=== PATIENT | female | born 1995 | race Caucasian/White ===

== ENCOUNTER → 2018-05-11 | Outpatient (CLI) | payer OTHER ==
--- NOTE | 2018-05-12 07:49 | US ---
EXAMINATION TYPE: Transabdominal DATE OF EXAM: 01/24/18 COMPARISON: NONE CLINICAL HISTORY: Z36 Confirm dates; EXAM PERFORMED: Transabdominal (TA) EXAM MEASUREMENTS: GESTATIONAL AGE / DATING Physician Established: Not yet established Dates by LMP: (8 weeks/1 day) EDC: 12/20/2018 Dates by First Scan: No previous. This is first scan Dates by Current Scan for: ( 8 weeks/1 day) EDC: 12/20/2018 MATERNAL ANATOMY Uterus: 8.8 x 4.5 x 5.1cm Right Ovary: not seen Left Ovary: 2.4 x 3.0 x 1.9cm Post CDS / Adnexa: wnl Presence of free fluid: no Presence of corpus luteal cyst: not seen Presence of subchorionic bleed: anechoic area seen superior subchorionic area = 0.3 x 0.5 x 0.6cm GESTATION / SURVEY CRL: 1.7cm (8 weeks/1 day) Yolk Sac (normal less than 6mm): 3.5mm Heart Rate: 171 bpm Rhythm: Normal IUP: Viable IUP Date of LMP: 03/15/2018 Beta HcG (if available): NA Single, live IUP, 8 weeks/1 day, EDC: 12/20/2018, [id number] Single live intrauterine gestation is confirmed as gestational sac, yolk sac, and pole are iden tified. Tiny 3 x 6 x 5 mm curvilinear fluid collection along superior aspect of the decidual reaction likely reflects tiny subchorionic hemorrhage image 26 towards the end of study. No free fluid is see n in pelvic cul-de-sac. Left ovary is seen. Right ovary is not clearly identified. No suspicious adnexal masses are seen. IMPRESSION: Single live intrauterine gestation is confirmed, mean crown-rump length is 1.7 cm corresponding to 8 week 1 day old fetus.
== END | disposition home or self-care (01) ==
LOC: RADUSWWP 14:12
PROVIDERS: ATTEND Obstetrics & Gynecology
DX: Z36.9 Encounter for antenatal screening, unspecified (principal); Z3A.08 8 weeks gestation of pregnancy
CPT/HCPCS: 76801

== ENCOUNTER 2018-12-22 05:18 | Inpatient (IN) | payer OTHER ==
--- NOTE | 2018-12-21 18:20 | P.HPOB ---
History of Present Illness H&P Date: 12/21/18 Chief Complaint: Induction of labor This is a 23-year-old female 2 para 0 with an estimated date of confinement of 12/20/2018, estimated gestational age of 40-2/7 weeks, who presents to labor and delivery for induction of labor. She admits to good movement. She has been feeling frequent contractions. She also complains of pressure. She was seen by maternal medicine earlier in the and the baby was found to have possible clubfeet. When she went back for follow-up ultrasound, the clubfeet were not seen but not clearly visualized. labs: Hepatitis B surface antigen-negative RPR-nonreactive Rubella-immune Blood type-O+ Antibody screen-negative Hemoglobin-13.3 Toxoplasma screen-negative Random glucose-75 One hour Glucola-99 Group B streptococcus-negative Obstetrical history: . History of 1 miscarriage. Gynecologic history: No history of sexual transmitted diseases. Social history: She is single. 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, history of heart murmur Additional Past Surgical History / Comment(s): Reconstruction of right hand, aspiration of right ganglion cyst Past Psychological History: No Psychological Hx Reported Smoking Status: Never smoker Past Alcohol Use History: None Reported Past Drug Use History: None Reported Medications and Allergies Home Medications Medication Instructions Recorded Confirmed Type Albuterol Inhaler [Ventolin Hfa 1 - 2 puff INHALATION RT-Q6H PRN 12/21/18 History Inhaler] Loratadine [Claritin] 10 mg PO DAILY 12/21/18 12/21/18 History Montelukast Sodium [Singulair] 5 mg PO DAILY 12/21/18 12/21/18 History Pnv,Calcium 72/Iron/Folic Acid 2 each PO 12/21/18 History [ Plus Tablet] Allergies Allergy/AdvReac Type Severity Reaction Status Date / Time Penicillins Allergy Rash/Hives Verified 12/21/18 18:18 Exam Osteopathic Statement: *. No significant issues noted on an osteopathic structural exam other than those noted in the History and Physical/Consult. HEENT: Within normal limits Heart: Regular rate and rhythm Lungs: Clear to auscultation bilaterally Abdomen: Cervix: 1-1/2 cm/80%/+1 station heart tones: Category 1 with moderate variability Contractions: Irregular Extremities: Negative Homans Assessment and Plan (1) 40 weeks gestation of Status: Acute Code(s): Z3A.40 - 40 WEEKS GESTATION OF SNOMED Code( s): 97153405 Plan: Proceed with oxytocin induction of labor. Expectant management. Epidural anesthesia if desired.
[2018-12-22] MEDS ORDERED: METHYLERGONOVINE 0.2 MG/ML 1 ML AMP IM PRN (05:33)
[2018-12-22] MEDS ORDERED: CARBOPROST TROMETHAMINE 250 MCG/ML 1 ML AMP IM PRN (05:33)
[2018-12-22] MEDS ORDERED: OXYTOCIN 10 UNIT/ML 1 ML VIAL IM PRN (05:33)
[2018-12-22] MEDS ORDERED: LIDOCAINE 0.5% (PF) 5 MG/ML (50 ML SDV) SQ PRN (05:33)
[2018-12-22] MEDS ORDERED: TERBUTALINE 1 MG/ML VIAL SQ PRN (05:33)
[2018-12-22] MEDS: LACTATED RINGERS 1,000 ML IV SCH ×2 (05:41→10:07)
[2018-12-22 05:45] VITALS: BMI 25.2
[2018-12-22] MEDS ORDERED: OXYTOCIN 30 UNITS/500 ML NS 30 UNIT in SALINE 1 500ML.BAG IV SCH (05:45)
[2018-12-22 05:57] LABS: Basophils # (A) 0.1 k/uL (0-0.2); Basophils % (A) 1 %; Eosinophils # (A) 0.2 k/uL (0-0.7); Eosinophils % (A) 2 %; HCT 38.2 % (34.0-46.0); HGB 12.4 gm/dL (11.4-16.0); Hypochromasia Slight; Lymphocytes % (A) 21 %; MCH 23.1 pg (25.0-35.0); MCHC 32.4 g/dL (31.0-37.0); MCV 71.2 fL (80.0-100.0); Mean Platelet Volume 6.3; Microcytosis Slight; Monocytes # (A) 0.5 k/uL (0-1.0); Monocytes % (A) 6 %; Neutrophils # (A) 6.5 k/uL (1.3-7.7); Neutrophils % (A) 68 %; Platelet Count 211 k/uL (150-450); RBC 5.37 m/uL (3.80-5.40); RDW 13.6 % (11.5-15.5); WBC 9.6 k/uL (3.8-10.6)
[2018-12-22] MEDS ORDERED: BUTORPHANOL 1 MG/ML 1 ML VIAL IV PRN (06:26)
[2018-12-22] MEDS ORDERED: SODIUM CHLORIDE 0.9% 100 ML BAG ONE (09:15)
[2018-12-22] MEDS ORDERED: ROPIVACAINE 5MG/ML 20ML VIAL ONE (09:15)
[2018-12-22] MEDS ORDERED: fentaNYL (PF) 50 MCG/ML 5 ML AMP ONE (09:15)
[2018-12-22] MEDS ORDERED: ACETAMINOPHEN TAB 325 MG TAB PO PRN (14:53)
[2018-12-22] MEDS ORDERED: ZOLPIDEM 5 MG TAB PO PRN (14:53)
[2018-12-22] MEDS ORDERED: WITCH HAZEL 1 EACH MED..PAD TOPICAL PRN (14:53)
[2018-12-22] MEDS ORDERED: ALBUTEROL NEBULIZED 2.5 MG/3 ML INHALATION PRN (14:53)
[2018-12-22] MEDS ORDERED: diphenhydrAMINE 50 MG/ML 1 ML VIAL IVP PRN ×2 (14:53)
[2018-12-22] MEDS ORDERED: LANOLIN CREAM 5 GM TUBE TOPICAL PRN (14:53)
[2018-12-22] MEDS ORDERED: OXYTOCIN 20 UNITS/1000 ML NS 1,000 ML IV SCH (14:53)
[2018-12-22] MEDS ORDERED: BENZOCAINE/MENTHOL SPRAY 1 GM/SPRAY AEROSOL TOPICAL PRN (14:53)
[2018-12-22] MEDS ORDERED: HYDROCORTISONE 2.5% RECTAL CREAM 30 GM TUBE RECTAL PRN (14:53)
[2018-12-22] MEDS ORDERED: diphenhydrAMINE 50 MG CAP PO PRN (14:53)
[2018-12-22] MEDS ORDERED: diphenhydrAMINE 25 MG CAP PO PRN (14:53)
[2018-12-22] MEDS ORDERED: SIMETHICONE 80 MG CHEWABLE PO PRN (14:53)
[2018-12-22] MEDS: IBUPROFEN 600 MG TAB PO PRN ×2 (15:51→23:09)
--- NOTE | 2018-12-22 16:43 | P.PROBDLV ---
Vaginal Delivery Note - . Vaginal Delivery Note: The patient progressed to complete dilation after oxytocin induction of labor and artificial rupture of membranes with clear fluid noted. She did receive 1 dose of Stadol and did receive epidural anesthesia. Once reaching complete dilation, she began pushing. 's head came to a crown. With one further push, the infant's head delivered across the perineum and a left occiput anterior lie. At this point she decided to stop pushing. I encouraged her to continue pushing until the anterior shoulder delivered. Once the anterior shoulder delivered, nose and mouth were bulb suctioned at the perineum. With one remaining push, the entire delivered and was placed on mother's abdomen. Cord was clamped and cut and was taken to warmer for evaluation. A viable male infant was noted with scores of 9 at 1 minute and 9 at 5 minutes and infant weight of 6 lbs. 1 oz. Placenta delivered shortly thereafter, intact, with a three-vessel cord. Uterus contracted well after oxytocin was given and uterine massage was carried out. Inspection of the perineum revealed a left periurethral laceration. This area was anesthetized with 1% lidocaine and then sutured with 3-0 Vicryl suture in a running locked fashion. Estimated blood loss is approximately 200 mL's. Both mother and are in stable condition.
[2018-12-22] MEDS: SENNOSIDES-DOCUSATE SODIUM 1 EACH TAB PO SCH (20:14)
[2018-12-22] MEDS: LORATADINE 10 MG TAB PO SCH (20:14)
[2018-12-22] MEDS: MONTELUKAST 5 MG CHEWABLE PO SCH (20:14)
[2018-12-23 06:51] LABS: Basophils % (A) 0 %; Eosinophils # (A) 0.1 k/uL (0-0.7); Eosinophils % (A) 0 %; HCT 32.2 % (34.0-46.0); HGB 10.5 gm/dL (11.4-16.0); Hypochromasia Slight; Lymphocytes # (A) 2.2 k/uL (1.0-4.8); Lymphocytes % (A) 19 %; MCH 23.3 pg (25.0-35.0); MCHC 32.5 g/dL (31.0-37.0); MCV 71.7 fL (80.0-100.0); Mean Platelet Volume 6.9; Microcytosis Slight; Monocytes # (A) 0.6 k/uL (0-1.0); Monocytes % (A) 5 %; Neutrophils # (A) 8.7 k/uL (1.3-7.7); Neutrophils % (A) 74 %; Platelet Count 161 k/uL (150-450); RBC 4.49 m/uL (3.80-5.40); RDW 13.7 % (11.5-15.5); WBC 11.8 k/uL (3.8-10.6)
[2018-12-23] MEDS: SENNOSIDES-DOCUSATE SODIUM 1 EACH TAB PO SCH ×2 (08:06→20:25)
[2018-12-23] MEDS: IBUPROFEN 600 MG TAB PO PRN ×2 (09:16→15:59)
--- NOTE | 2018-12-23 10:47 | P.DS ---
Providers Date of admission: 12/22/18 05:18 Expected date of discharge: 12/23/18 Attending physician: Isabella Hernadez Primary care physician: Stated None - Discharge Diagnosis(es) (1) 40 weeks gestation of Current Visit: No Status: Acute Hospital Course: This is a 23-year-old female 2 para 0 at 40-2/7 weeks who presented for induction of labor. She underwent oxytocin induction of labor and delivered vaginally a viable male on 12/22/2018 with scores of 9 at 1 minute and 9 at 5 minutes and infant weight of 6 lbs. 1 oz. Her course has been uncomplicated. She is bottle feeding. Lochia is decreasing. Pain is fairly well controlled with ibuprofen. Vital signs are stable. Abdomen is soft with fundus firm and nontender. Extremities show negative Homans. Impression is status post vaginal delivery day #1. Plan is to discharge home today. Routine instructions are given. She is advised to follow up in the office in 6 weeks for a check. She is advised to call the office if she has any further questions or concerns prior to her appointment time. She will be given a prescription for ibuprofen. Procedures: Oxytocin induction of labor Spontaneous vaginal delivery of a viable male on 12/22/2018 Patient Condition at Discharge: Stable Plan - Discharge Summary New Discharge Prescriptions: New Ibuprofen [Motrin] 600 mg PO Q6HR PRN #60 tab PRN Reason: Mild Pain Or Fever >= 100.5 Continue Albuterol Inhaler [Ventolin Hfa Inhaler] 1 - 2 puff INHALATION RT-Q6H PRN PRN Reason: Wheezing Montelukast Sodium [Singulair] 5 mg PO DAILY Loratadine [Claritin] 10 mg PO DAILY Pnv,Calcium 72/Iron/Folic Acid [ Plus Tablet] 1 each PO ONCE Discharge Medication List Albuterol Inhaler [Ventolin Hfa Inhaler] 1 - 2 puff INHALATION RT-Q6H PRN [History] Loratadine [Claritin] 10 mg PO DAILY 12/21/18 [History] Montelukast Sodium [Singulair] 5 mg PO DAILY 12/21/18 [History] Pnv,Calcium 72/Iron/Folic Acid [ Plus Tablet] 1 each PO ONCE 12/21/18 [ History] Ibuprofen [Motrin] 600 mg PO Q6HR PRN #60 tab 12/23/18 [Rx] Follow up Appointment(s)/Referral(s): Isabella Hernadez DO [Doctor of Osteopathic Medicine] - 6 Weeks Discharge Disposition: HOME SELF-CARE
[2018-12-23] MEDS: MONTELUKAST 5 MG CHEWABLE PO SCH (19:36)
[2018-12-23] MEDS: LORATADINE 10 MG TAB PO SCH (19:36)
[2018-12-24] MEDS: IBUPROFEN 600 MG TAB PO PRN ×2 (03:05→10:22)
[2018-12-24] MEDS: SENNOSIDES-DOCUSATE SODIUM 1 EACH TAB PO SCH (10:22)
[2018-12-24 10:32] VITALS: BP 107/65; PULSE 69; RESP 18; TEMP 98.2
== END 2018-12-24 14:17 | disposition home or self-care (01) | DRG 807 ==
LOC: 4FBP 05:18
PROVIDERS: ADMIT Obstetrics & Gynecology; ATTEND Obstetrics & Gynecology
PROC: 10907ZC Drainage of Amniotic Fluid, Therapeutic from Products of Conception, Via Natural or Artificial Opening (ICD-10-PCS; principal; 2018-12-22)
PROC: 3E033VJ Introduction of Other Hormone into Peripheral Vein, Percutaneous Approach (ICD-10-PCS; principal; 2018-12-22)
PROC: 00HU33Z Insertion of Infusion Device into Spinal Canal, Percutaneous Approach (ICD-10-PCS; principal; 2018-12-22)
PROC: 0UQMXZZ Repair Vulva, External Approach (ICD-10-PCS; principal; 2018-12-22)
PROC: 10E0XZZ Delivery of Products of Conception, External Approach (ICD-10-PCS; principal; 2018-12-22)
PROC: 3E0R3NZ Introduction of Analgesics, Hypnotics, Sedatives into Spinal Canal, Percutaneous Approach (ICD-10-PCS; principal; 2018-12-22)
DX: O48.0 Post-term pregnancy (principal); Z37.0 Single live birth; Z3A.40 40 weeks gestation of pregnancy; J45.909 Unspecified asthma, uncomplicated; O99.52 Diseases of the respiratory system complicating childbirth; Z79.51 Long term (current) use of inhaled steroids; Z79.899 Other long term (current) drug therapy; O71.82 Other specified trauma to perineum and vulva
CPT/HCPCS: 85025; 86850; 86900; 86901; 88307

== ENCOUNTER → 2019-09-07 | Outpatient (CLI) | payer OTHER ==
--- NOTE | 2019-09-07 11:10 | US ---
EXAMINATION TYPE: Transabdominal DATE OF EXAM: 09/07/2019 10:40 AM COMPARISON: NONE CLINICAL HISTORY: Z36 confirm dates. EXAM PERFORMED: Transabdominal EXAM MEASUREMENTS: GESTATIONAL AGE / DATING Physician Established: Not yet established Dates by LMP: (9 weeks/3 days) EDC: 04/08/20 Dates by First Scan: No previous this is first scan Dates by Current Scan for: (9 weeks/4 days) EDC: 04/07/20 MATERNAL ANATOMY Uterus: 13.6 x 4.9 x 8.6cm Right Ovary: 2.6 x 1.8 x 2.1cm Left Ovary: 2.5 x 1.5 x 1.5cm, not well visualized due to overlying bowel gas and increased uterine s ize Post CDS / Adnexa: wnl Presence of free fluid: wnl GESTATION / SURVEY CRL: 2.8cm (9 weeks/4 days) Yolk Sac (normal less than 6mm): 3mm Heart Rate: 166 bpm Rhythm: Normal IUP: Viable IUP Date of LMP: 07/03/20 Beta HcG (if available): Not available at this time IMPRESSION: Single live intrauterine with a sonographic age of 9 weeks and 4 days and estimated date of delivery of 04/07/2020, concordant with menstrual age.
== END ==
LOC: RADUSWWP 10:13
PROVIDERS: ATTEND Obstetrics & Gynecology
DX: Z36.89 Encounter for other specified antenatal screening (principal); Z3A.09 9 weeks gestation of pregnancy
CPT/HCPCS: 76801

== ENCOUNTER → 2019-09-25 | Outpatient (CLI) | payer OTHER ==
--- NOTE | 2019-09-25 15:00 | US ---
EXAMINATION TYPE: Transabdominal DATE OF EXAM: 09/25/2019 2:36 PM COMPARISON: Prior ultrasound September 07, 2019 CLINICAL HISTORY: O76 absent heart tones. Abnormal exam in OB office. EXAM PERFORMED: Transabdominal (TA) EXAM MEASUREMENTS: GESTATIONAL AGE / DATING Physician Established: (12 weeks/0 days) EDC: 04/08/2020 Dates by LMP: (12 weeks/0 days) EDC: 04/08/2020 Dates by First Scan: (9 weeks/4 days) EDC: 04/08/2020 Dates by Current Scan for: (12 weeks/2 days) EDC: 04/06/2020 MATERNAL ANATOMY Uterus: 14.6 x 7.3 x 9.8 cm Right Ovary: Obscured by bowel gas Left Ovary: Obscured by bowel gas Post CDS / Adnexa: wnl Presence of free fluid: no Presence of corpus luteal cyst: no Presence of subchorionic bleed: no GESTATION / SURVEY CRL: 5.8cm (12 weeks/2 days) Heart Rate: 151 bpm Rhythm: Normal IUP: Viable IUP Single live intrauterine gestation is redemonstrated our images which is gestational sac and po le seen. No cul-de-sac is not clearly identified. No free fluid in pelvic cul-de-sac. Neither ovary seen but no suspicious adnexal mass noted. IMPRESSION: Single live intrauterine gestation redemonstrated with satisfactory interval progression, mean crown-rump length is 5.8 cm corresponding to 12 week 2 day old fetus.
== END | disposition home or self-care (01) ==
LOC: RADUSWWP 14:01
PROVIDERS: ATTEND Obstetrics & Gynecology
DX: O76 Abnormality in fetal heart rate and rhythm complicating labor and delivery (principal); Z3A.12 12 weeks gestation of pregnancy
CPT/HCPCS: 76801

== ENCOUNTER 2020-04-07 20:16 | Inpatient (IN) | payer OTHER ==
[~2020-04-07 20:16] MED LIST: ROPIVACAINE 5MG/ML 20ML VIAL ONE; SODIUM CHLORIDE 0.9% 100 ML BAG ONE; fentaNYL (PF) 50 MCG/ML 5 ML AMP ONE
[2020-04-07] MEDS ORDERED: LIDOCAINE 0.5% (PF) 5 MG/ML (50 ML SDV) SQ PRN (22:00)
[2020-04-07] MEDS ORDERED: OXYTOCIN 10 UNIT/ML 1 ML VIAL IM PRN (22:00)
[2020-04-07] MEDS ORDERED: TERBUTALINE 1 MG/ML VIAL SQ PRN (22:00)
[2020-04-07] MEDS ORDERED: METHYLERGONOVINE 0.2 MG/ML 1 ML AMP IM PRN (22:00)
[2020-04-07] MEDS ORDERED: CARBOPROST TROMETHAMINE 250 MCG/ML 1 ML AMP IM PRN (22:00)
[2020-04-07 22:54] LABS: Basophils % (A) 1 %; Eosinophils # (A) 0.1 k/uL (0-0.7); Eosinophils % (A) 1 %; HCT 40.6 % (34.0-46.0); HGB 12.7 gm/dL (11.4-16.0); Lymphocytes # (A) 2.5 k/uL (1.0-4.8); Lymphocytes % (A) 28 %; MCHC 31.3 g/dL (31.0-37.0); MCV 70.4 fL (80.0-100.0); Mean Platelet Volume 7.2; Microcytosis Moderate; Monocytes # (A) 0.4 k/uL (0-1.0); Monocytes % (A) 4 %; Neutrophils # (A) 5.8 k/uL (1.3-7.7); Neutrophils % (A) 64 %; Platelet Count 195 k/uL (150-450); RBC 5.77 m/uL (3.80-5.40); RDW 13.8 % (11.5-15.5)
[2020-04-08] MEDS: LACTATED RINGERS 1,000 ML IV SCH
--- NOTE | 2020-04-08 01:01 | P.HPOB ---
History of Present Illness H&P Date: 04/08/20 Chief Complaint: Intrauterine at term: Active labor Patient is a 24-year-old at 39 weeks 6 days gestation arrives in active labor chanel every 5-7 minutes making cervical change. Her course has been unremarkable other than having some labor-like symptoms and contractions at 27-28 weeks however she is done very well otherwise. Her pe rtinent labs did include O+ blood type, Rh antibody was negative, rubella is immune, hepatitis B surface antigen/RPR/HIV and GBS were all negative. She relates contractions began earlier this evening and got much stronger and by 6:00 she was sent in to labor and delivery by myself after phone conversation with her. Currently she is dilated to 8 cm 90% effaced -1 station a category 1 tracing is noted and she is chanel approximately every 7 minutes. Artificial rupture membranes was performed and clear fluid is noted. 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, history of heart murmur History of Any Multi-Drug Resistant Organisms: None Reported Additional Past Surgical History / Comment(s): Reconstruction of right hand, aspiration of right ganglion cyst Past Anesthesia/Blood Transfusion Reactions: No Reported Reaction Past Psychological History: No Psychological Hx Reported Smoking Status: Never smoker Past Alcohol Use History: None Reported Past Drug Use History: None Reported - Past Family History Mother Family Medical History: No Reported History Medications and Allergies Home Medications Medication Instructions Recorded Confirmed Type Pnv,Calcium 72/Iron/Folic Acid 1 each PO ONCE 12/21/18 04/07/20 History [ Plus Tablet] Allergies Allergy/AdvReac Type Severity Reaction Status Date / Time latex Allergy Rash/Hives Verified 12/22/18 05:31 Penicillins Allergy Rash/Hives Verified 12/22/18 05:31 Exam Osteopathic Statement: *. No significant issues noted on an osteopathic structural exam other than those noted in the History and Physical/Consult. Vital Signs Temp Pulse Resp BP 04/07/20 20:44 97.0 F L 86 16 134/83 Intake and Output 04/07/20 04/07/20 04/08/20 14:59 22:59 06:59 Other: Weight 58.967 kg - OBG Physical Exam Breast: both: normal (no masses) Abdomen: bowel sounds normal, no diffuse tenderness, no bruit present, no guarding noted, no hepatomegaly, no splenomegaly, no mass Vulva: both: normal Vagina: normal moisture, no discharge Cervix: no lesion, no discharge Uterus: normal size, normal contour Adnexa: both: normal Anus/Rectum: normal perianal skin, no rectal mass, no hemorrhoids, heme negative Results Result Diagrams: 04/07/20 22:45 Abnormal Lab Results - Last 24 Hours (Table) 04/07/20 Range/Units 22:45 RBC 5.77 H (3.80-5.40) m/uL MCV 70.4 L (80.0-100.0) fL MCH 22.0 L (25.0-35.0) pg
[2020-04-08] MEDS: OXYTOCIN 30 UNITS/500 ML NS 30 UNIT in SALINE 1 500ML.BAG IV SCH (02:12)
[2020-04-08] MEDS ORDERED: WITCH HAZEL 1 EACH MED..PAD TOPICAL PRN (03:00)
[2020-04-08] MEDS ORDERED: ZOLPIDEM 5 MG TAB PO PRN (03:00)
[2020-04-08] MEDS ORDERED: diphenhydrAMINE 50 MG/ML 1 ML VIAL IVP PRN ×2 (03:00)
[2020-04-08] MEDS ORDERED: diphenhydrAMINE 50 MG CAP PO PRN (03:00)
[2020-04-08] MEDS ORDERED: LANOLIN CREAM 5 GM TUBE TOPICAL PRN (03:00)
[2020-04-08] MEDS ORDERED: OXYTOCIN 20 UNITS/1000 ML NS 1,000 ML IV SCH (03:00)
[2020-04-08] MEDS ORDERED: ACETAMINOPHEN TAB 325 MG TAB PO PRN (03:00)
[2020-04-08] MEDS ORDERED: BENZOCAINE/MENTHOL SPRAY 1 GM/SPRAY AEROSOL TOPICAL PRN (03:00)
[2020-04-08] MEDS ORDERED: diphenhydrAMINE 25 MG CAP PO PRN (03:00)
[2020-04-08] MEDS ORDERED: HYDROCORTISONE 2.5% RECTAL CREAM 30 GM TUBE RECTAL PRN (03:00)
[2020-04-08] MEDS ORDERED: SIMETHICONE 80 MG CHEWABLE PO PRN (03:00)
--- NOTE | 2020-04-08 03:03 | P.PROBDLV ---
Vaginal Delivery Note - . Vaginal Delivery Note: Patient progressed complete and pushed with spontaneous vaginal delivery of a viable male over an intact perineum. Falling deliver the head anterior posterior shoulders were easily delivered with gentle downward upper traction followed by the remainder the baby. Mouth nares were then bulb suctioned and nursery personnel was present to assume care. Baby was placed on mother's abdomen where the umbilical cord was allowed to pulsate for 45 seconds prior to clamping and cutting. Placenta was then delivered intact Pitocin was added to the IV. scores were 9 and 9 at one and 5 minutes respectfully and the weight is pending. Both mother and baby however appear stable following delivery.
[2020-04-08] MEDS: IBUPROFEN 600 MG TAB PO PRN ×2 (11:17→19:17)
[2020-04-08] MEDS: SENNOSIDES-DOCUSATE SODIUM 1 EACH TAB PO SCH ×2 (11:59→20:28)
[2020-04-09] MEDS: IBUPROFEN 600 MG TAB PO PRN ×2 (03:31→20:08)
[2020-04-09] MEDS: SENNOSIDES-DOCUSATE SODIUM 1 EACH TAB PO SCH ×2 (08:00→20:14)
--- NOTE | 2020-04-09 12:21 | P.PNOBGVD ---
Subjective - Subjective Principal diagnosis: Status post vaginal delivery day #1 Interval history: Patient is doing okay. She is breast-feeding. Lochia is decreasing. Her pain is well-controlled. Baby is on a bili blanket currently. Patient reports: Reports appetite normal, Reports voiding normally, Reports pain well controlled, Reports ambulating normally : doing well, nursing well Objective - Latest Vital Signs Latest vital signs: Vital Signs Temp Pulse Resp BP Pulse Ox 04/09/20 08:00 97.9 F 72 18 110/65 98 04/09/20 00:00 97.7 F 81 14 108/70 98 04/08/20 16:00 98.5 F 88 18 101/64 97 Intake and Output 04/08/20 04/09/20 04/09/20 22:59 06:59 14:59 Other: # Voids 1 2 1 # Bowel Movements 0 0 - Exam Extremities: Present: normal. Absent: tenderness Abdomen: Present: normal appearance, soft. Absent: distention, tenderness Uterus: Present: normal, firm. Absent: tenderness Assessment and Plan Assessment: Status post vaginal delivery day #1 Plan: Continue with care. Anticipate discharge home tomorrow.
[2020-04-09] MEDS: LACTATED RINGERS 1,000 ML IV SCH ×2 (20:12→20:15)
[2020-04-09] MEDS: OXYTOCIN 30 UNITS/500 ML NS 30 UNIT in SALINE 1 500ML.BAG IV SCH (20:14)
[2020-04-10] MEDS: IBUPROFEN 600 MG TAB PO PRN (05:57)
[2020-04-10] MEDS: SENNOSIDES-DOCUSATE SODIUM 1 EACH TAB PO SCH (07:44)
--- NOTE | 2020-04-10 08:51 | P.DS ---
Providers Date of admission: 04/07/20 22:02 Expected date of discharge: 04/10/20 Attending physician: Isabella Hernadez Primary care physician: Stated None Hospital Course: This is a 24-year-old female 3 para 1 at 39-6/7 weeks who presented for active labor. She delivered vaginally a viable male infant on 04/08/2020 with scores of 9 at 1 minute and 9 at 5 minutes and weight of 6 lbs. 10 oz. Her course has been uncomplicated. The baby has had some issues with bilirubin and has been on a bili light. Pain is well-controlled. Lochia is decreasing. She is breast-feeding. Vital signs are stable. Abdomen is soft with fundus firm and nontender. Extremities show negative Homans. Impression is status post vaginal delivery day #2. Plan is to discharge home today. Routine instructions are given. She is advised follow-up in the office in 6 weeks for check. She will be given a prescription for ibuprofen. She is advised to call the office if she has any further que stions or concerns prior to her appointment time. Procedures: Spontaneous vaginal delivery of a viable male infant on 04/08/2020 Patient Condition at Discharge: Stable Plan - Discharge Summary New Discharge Prescriptions: No Action Pnv,Calcium 72/Iron/Folic Acid [ Plus Tablet] 1 each PO ONCE Discharge Medication List Pnv,Calcium 72/Iron/Folic Acid [ Plus Tablet] 1 each PO ONCE 12/21/18 [History] Follow up Appointment(s)/Referral(s): Isabella Hernadez DO [Doctor of Osteopathic Medicine] - 6 Weeks Activity/Diet/Wound Care/Special Instructions: Instructions 1. Do not begin any exercise program for 3 weeks. 2. Do not resume sexual relations for 3 weeks or longer if uncomfortable. 3. You may take tub baths or showers at any time. 4. You may use tampons if desired after 3 weeks. 5. Keep the area of episiotomy (stitches) clean and dry. 6. If you are not nursing, wear a good fitting, supportive bra during the day and limit fluid intake for at least 1 week to prevent breast engorgement. 7. Call the office, [phone], within the next week to make appointment for your 6 week checkup if it has not already been made. 8. Report any of the following occurrences to the doctor promptly: a. Heavy, excessive bleeding b. Chills, fever c. Burning or frequency of urination d. Pain or redness and breasts if nursing e. Increasing pain or swelling in episiotomy (stitches). In addition to the above instructions, the following additional should be followed: 1. No heavy lifting or straining (exercising) until after 6 week checkup. 2. Keep abdominal incision clean and dry: You may wear a dressing if more comfortable. 3. Make office appointment for 10 days after going home or as instructed by her doctor. Discharge Disposition: HOME SELF-CARE
[2020-04-10 16:06] VITALS: BP 112/74; PULSE 61; RESP 18; TEMP 98.4
== END 2020-04-10 16:50 | disposition home or self-care (01) | DRG 807 ==
LOC: FBPOP 20:16 → 4FBP 22:02
PROVIDERS: ADMIT Obstetrics & Gynecology; ATTEND Obstetrics & Gynecology
PROC: 00HU33Z Insertion of Infusion Device into Spinal Canal, Percutaneous Approach (ICD-10-PCS; principal; 2020-04-08)
PROC: 3E0R3BZ Introduction of Anesthetic Agent into Spinal Canal, Percutaneous Approach (ICD-10-PCS; principal; 2020-04-08)
PROC: 10E0XZZ Delivery of Products of Conception, External Approach (ICD-10-PCS; principal; 2020-04-08)
DX: O80 Encounter for full-term uncomplicated delivery (principal); Z37.0 Single live birth; Z3A.39 39 weeks gestation of pregnancy; Z88.0 Allergy status to penicillin; Z87.09 Personal history of other diseases of the respiratory system; Z91.040 Latex allergy status
CPT/HCPCS: 59025; 85025; 86850; 86900; 86901; 99213

== ENCOUNTER 2022-04-13 06:00 | Inpatient (IN) | payer OTHER ==
--- NOTE | 2022-04-12 20:16 | P.HPOB ---
History of Present Illness H&P Date: 04/12/22 Chief Complaint: Induction of labor This is a 26 y.o. female, 4, para 2, with an estimated date of confinement of 04/17/2022, estimated gestational age of 39-3/7 weeks, who presents for oxytocin induction of labor. She admits to irregular contractions and pressure. It is difficult for her to walk and she has requested induction of labor. labs: GC/Chlamydia/Trich-neg Hepatitis B surface antigen-neg RPR-NR Rubella-immune Blood type-O+ Antibody screen-neg HIV-NR Hemoglobin-11.4 Random glucose-108 1 hr. GTT-105 GBS-neg OB Hx: . History of 2 vaginal deliveries and 1 miscarriage. Tmr Teacher Hx: No history of STDs. Social Hx: Single. Unemployed. 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, history of heart murmur History of Any Multi-Drug Resistant Organisms: None Reported Additional Past Surgical History / Comment(s): Reconstruction of right hand, aspiration of right ganglion cyst, tooth extraction x 2 Past Anesthesia/Blood Transfusion Reactions: No Reported Reaction Past Psychological History: No Psychological Hx Reported Smoking Status: Former smoker, Vaper Past Alcohol Use History: None Reported Past Drug Use History: None Reported - Past Family History Mother Family Medical History: No Reported History Medications and Allergies Home Medications Medication Instructions Recorded Confirmed Type Vit No.180/Iron/Folic 1 each PO ONCE 12/21/18 04/07/20 History [ Plus Vitamin-Mineral] Allergies Allergy/AdvReac Type Severity Reaction Status Date / Time latex Allergy Rash/Hives Verified 12/22/18 05:31 Penicillins Allergy Rash/Hives Verified 12/22/18 05:31 Exam Osteopathic Statement: *. No significant issues noted on an osteopathic structural exam other than those noted in the History and Physical/Consult. HEENT: within normal limits Heart: regular rate and rhythm Lungs: clear to auscultation Abdomen: , non-tender Cervix: 2 cm/60%/-2 heart tones: 140's by doppler Extremities: neg. Yamilka's Assessment and Plan (1) 39 weeks gestation of Status: Acute Code(s): Z3A.39 - 39 WEEKS GESTATION OF SNOMED Code(s): 88154835 Plan: Proceed with oxytocin induction of labor. Expectant management. Epidural anesthesia if desired.
[2022-04-13] MEDS ORDERED: OXYTOCIN 30 UNITS/500 ML NS 30 UNIT in SALINE 1 500ML.BAG IV SCH (06:35)
[2022-04-13] MEDS ORDERED: CARBOPROST TROMETHAMINE 250 MCG/ML 1 ML AMP IM PRN (06:35)
[2022-04-13] MEDS ORDERED: OXYTOCIN 10 UNIT/ML 1 ML VIAL IM PRN (06:35)
[2022-04-13] MEDS ORDERED: LIDOCAINE 0.5% (PF) 5 MG/ML (50 ML SDV) SQ PRN (06:35)
[2022-04-13] MEDS ORDERED: LIDOCAINE 1% (10MG/ML) FOR IV START INTRADERMA PRN (06:35)
[2022-04-13] MEDS ORDERED: METHYLERGONOVINE 0.2 MG/ML 1 ML AMP IM PRN (06:35)
[2022-04-13] MEDS ORDERED: LACTATED RINGERS 1,000 ML IV SCH (06:35)
[2022-04-13] MEDS ORDERED: TERBUTALINE 1 MG/ML VIAL SQ PRN (06:35)
[2022-04-13 07:10] LABS: Basophils # (A) 0.1 k/uL (0-0.2); Basophils % (A) 1 %; Eosinophils # (A) 0.2 k/uL (0-0.7); Eosinophils % (A) 4 %; HCT 36.3 % (34.0-46.0); HGB 11.4 gm/dL (11.4-16.0); Hypochromasia Slight; Lymphocytes # (A) 2.2 k/uL (1.0-4.8); Lymphocytes % (A) 40 %; MCH 22.9 pg (25.0-35.0); MCHC 31.4 g/dL (31.0-37.0); MCV 73.1 fL (80.0-100.0); Mean Platelet Volume 8.1; Microcytosis Slight; Monocytes # (A) 0.3 k/uL (0-1.0); Monocytes % (A) 6 %; Neutrophils # (A) 2.5 k/uL (1.3-7.7); Neutrophils % (A) 45 %; Platelet Count 144 k/uL (150-450); RBC 4.97 m/uL (3.80-5.40); RDW 14.1 % (11.5-15.5); WBC 5.5 k/uL (3.8-10.6)
[2022-04-13] MEDS ORDERED: BUTORPHANOL 1 MG/ML 1 ML VIAL IV PRN (11:24)
[2022-04-13 11:27] VITALS: RESP 16
--- NOTE | 2022-04-13 17:58 | P.PROBDLV ---
Vaginal Delivery Note - . Vaginal Delivery Note: The patient progressed to complete dilation after oxytocin induction of labor and artificial rupture membranes with clear fluid noted. Once reaching complete, she began pushing. Infant's head came to a crown. With one further push, the infant's head delivered across the perineum followed by the enter shoulder. With one remaining push, the remainder the easily delivered and was placed on mother's abdomen. Cord was clamped and cut and was taken to warmer for evaluation. A viable female infant is noted with scores of 9 at 1 minute and 9 at 5 minutes and infant weight is 5 lbs. 15 oz. Placenta delivered shortly thereafter intact with a three-vessel cord. Uterus contracted fairly well after oxytocin was given and uterine massage was carried out. Inspection of the perineum revealed no perineal lacerations. Estimated blood loss is approximately 150 mL's. Both mother and infant are in stable condition.
[2022-04-13] MEDS ORDERED: diphenhydrAMINE 25 MG CAP PO PRN (20:32)
[2022-04-13] MEDS ORDERED: LANOLIN CREAM 5 GM TUBE TOPICAL PRN (20:32)
[2022-04-13] MEDS ORDERED: SIMETHICONE 80 MG CHEWABLE PO PRN (20:32)
[2022-04-13] MEDS ORDERED: HYDROCORTISONE 2.5% RECTAL CREAM 30 GM TUBE RECTAL PRN (20:32)
[2022-04-13] MEDS ORDERED: diphenhydrAMINE 50 MG/ML 1 ML VIAL IVP PRN ×2 (20:32)
[2022-04-13] MEDS ORDERED: ZOLPIDEM 5 MG TAB PO PRN (20:32)
[2022-04-13] MEDS ORDERED: diphenhydrAMINE 50 MG CAP PO PRN (20:32)
[2022-04-13] MEDS ORDERED: BENZOCAINE/MENTHOL SPRAY 1 GM/SPRAY AEROSOL TOPICAL PRN (20:32)
[2022-04-13] MEDS ORDERED: ACETAMINOPHEN TAB 325 MG TAB PO PRN (20:32)
[2022-04-13] MEDS ORDERED: PRENATAL VIT-IRON-FOLIC ACID 1 EACH TABLET PO ONE (21:00)
[2022-04-13] MEDS: IBUPROFEN 600 MG TAB PO SCH (22:41)
[2022-04-14] MEDS: IBUPROFEN 600 MG TAB PO SCH ×2 (03:43→10:59)
[2022-04-14] MEDS ORDERED: SENNOSIDES-DOCUSATE SODIUM 1 EACH TAB PO SCH (08:00)
--- NOTE | 2022-04-14 08:08 | P.DS ---
Providers Date of admission: 04/13/22 06:16 Expected date of discharge: 04/14/22 Attending physician: Isabella Hernadez Primary care physician: Stated None - Discharge Diagnosis(es) (1) 39 weeks gestation of Current Visit: No Status: Acute Hospital Course: This is a 26-year-old female 4 para 2 at 39-3/7 weeks who presented for induction of labor. She underwent oxytocin induction of labor and delivered vaginally a viable female on 04/13/2022 with scores of 9 at 1 minute and 9 at 5 minutes and weight of 5 lbs. 15 oz. Her course has been uncomplicated. Lochia has been decreasing. Pain is well- controlled. She is breast-feeding. Vital signs are stable. Abdomen is soft with fundus firm and nontender. Extremities show negative Homans. Impression is status post vaginal delivery day #1. Plan is to discharge home today. Routine instructions are given. She will be given up for ibuprofen. She has a breast pump. She is advised to call the office if she has any further questions or concerns prior to her appointment time. She is advised follow-up in the office in 6 weeks for a check. Procedures: Oxytocin induction of labor Spontaneous vaginal delivery of a viable female infant on 04/13/2022 Patient Condition at Discharge: Stable Plan - Discharge Summary New Discharge Prescriptions: New Ibuprofen [Motrin] 600 mg PO Q6H #60 tab Continue Vit No.180/Iron/Folic [ Plus Vitamin-Mineral] 1 each PO ONCE Discharge Medication List Vit No.180/Iron/Folic [ Plus Vitamin-Mineral] 1 each PO ONCE 12/21/18 [History] Ibuprofen [Motrin] 600 mg PO Q6H #60 tab 04/14/22 [Rx] Follow up Appointment(s)/Referral(s): Iasbella Hernadez DO [Doctor of Osteopathic Medicine] - 05/25/22 11:30 am Activity/Diet/Wound Care/Special Instructions: Instructions 1. Do not begin any exercise program for 3 weeks. 2. Do not resume sexual relations for 3 weeks or longer if uncomfortable. 3. You may take tub baths or showers at any time. 4. You may use tampons if desired after 3 weeks. 5. Keep the area of episiotomy (stitches) clean and dry. 6. If you are not nursing, wear a good fitting, supportive bra during the day and limit fluid intake for at least 1 week to prevent breast engorgement. 7. Call the office, [phone], within the next week to make appointment for your 6 week checkup if it has not already been made. 8. Report any of the following occurrences to the doctor promptly: a. Heavy, excessive bleeding b. Chills, fever c. Burning or frequency of urination d. Pain or redness and breasts if nursing e. Increasing pain or swelling in episiotomy (stitches). In addition to the above instructions, the following additional should be followed: 1. No heavy lifting or straining (exercising) until after 6 week checkup. 2. Keep abdominal incision clean and dry: You may wear a dressing if more comfortable. 3. Make office appointment for 10 days after going home or as instructed by her doctor. Discharge Disposition: HOME SELF-CARE
[2022-04-14 08:14] LABS: Basophils % (A) 1 %; Eosinophils # (A) 0.2 k/uL (0-0.7); Eosinophils % (A) 2 %; HCT 32.5 % (34.0-46.0); HGB 10.2 gm/dL (11.4-16.0); Hypochromasia Slight; Lymphocytes # (A) 2.2 k/uL (1.0-4.8); Lymphocytes % (A) 23 %; MCHC 31.3 g/dL (31.0-37.0); MCV 73.5 fL (80.0-100.0); Mean Platelet Volume 8.4; Microcytosis Slight; Monocytes # (A) 0.4 k/uL (0-1.0); Monocytes % (A) 5 %; Neutrophils # (A) 6.4 k/uL (1.3-7.7); Neutrophils % (A) 68 %; Platelet Count 113 k/uL (150-450); RBC 4.42 m/uL (3.80-5.40); WBC 9.4 k/uL (3.8-10.6)
[2022-04-14 09:07] VITALS: BP 113/62; PULSE 64; TEMP 97.9
== END 2022-04-14 15:30 | disposition home or self-care (01) | DRG 807 ==
LOC: 4FBP 06:16
PROVIDERS: ADMIT Obstetrics & Gynecology; ATTEND Obstetrics & Gynecology
PROC: 10E0XZZ Delivery of Products of Conception, External Approach (ICD-10-PCS; principal; 2022-04-13)
PROC: 3E033VJ Introduction of Other Hormone into Peripheral Vein, Percutaneous Approach (ICD-10-PCS; 2022-04-13)
PROC: 4A0HXCZ Measurement of Products of Conception, Cardiac Rate, External Approach (ICD-10-PCS; 2022-04-13)
PROC: 10907ZC Drainage of Amniotic Fluid, Therapeutic from Products of Conception, Via Natural or Artificial Opening (ICD-10-PCS; 2022-04-13)
DX: O99.52 Diseases of the respiratory system complicating childbirth (principal); Z37.0 Single live birth; J45.909 Unspecified asthma, uncomplicated; F17.290 Nicotine dependence, other tobacco product, uncomplicated; Z3A.39 39 weeks gestation of pregnancy; Z88.0 Allergy status to penicillin; Z91.040 Latex allergy status; Z87.59 Personal history of other complications of pregnancy, childbirth and the puerperium
CPT/HCPCS: 85025; 86850; 86900; 86901

== ENCOUNTER 2022-08-26 08:47 | Day surgery (SDC) | payer OTHER ==
[2022-07-15 16:18] VITALS: BMI 21.4
--- NOTE | 2022-07-19 18:32 | P.HPOB ---
History of Present Illness H&P Date: 07/19/22 Chief Complaint: Family planning This is a 27 y.o. female, 4, para 3, who presents for laparoscopic bilateral tubal ligation via fulgaration for family planning. She recently delivered her last child and desires permanent sterilization. OB Hx: . History of 3 vaginal deliveries. Sales Representative Facility Services Hx: No history of STDs Social Hx: Single. Cleans houses part-time Review of Systems Constitutional: Denies chills, Denies fever Eyes: denies blurred vision, denies pain Ears, nose, mouth and throat: Denies headache, Denies sore throat Cardiovascular: Denies chest pain, Denies shortness of breath Respiratory: Denies cough Gastrointestinal: Denies abdominal pain, Denies diarrhea, Denies nausea, Denies vomiting Genitourinary: Denies dysuria, Denies hematuria Menstruation: Reports menses 1-7 days Musculoskeletal: Denies myalgias Integumentary: Denies pruritus, Denies rash Neurological: Denies numbness, Denies weakness Psychiatric: Denies anxiety, Denies depression Past Medical History Past Medical History: Asthma Additional Past Medical History / Comment(s): history of heart murmur-BENIGN , MIGRAINE HEADACHE, 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 History of Any Multi-Drug Resistant Organisms: None Reported Past Surgical History: Hernia Repair Additional Past Surgical History / Comment(s): Reconstruction of right hand, aspiration of right ganglion cyst, tooth extraction x 2 Past Anesthesia/Blood Transfusion Reactions: No Reported Reaction Past Psychological History: No Psychological Hx Reported Smoking Status: Former smoker, Vaper Past Alcohol Use History: None Reported Past Drug Use History: None Reported - Past Family History Mother History Unknown: Yes Medications and Allergies Home Medications Medication Instructions Recorded Confirmed Type Vit No.180/Iron/Folic 1 each PO DAILY 12/21/18 07/15/22 History [ Plus Vitamin-Mineral] Aspirin/Acetaminophen/Caffeine 1 each PO Q6H PRN 07/15/22 07/15/22 History [Excedrin Migraine Caplet] Allergies Allergy/AdvReac Type Severity Reaction Status Date / Time latex Allergy Rash/Hives Verified 07/19/22 08:17 Penicillins Allergy Rash/Hives Verified 07/15/22 15:44 Exam Osteopathic Statement: *. No significant issues noted on an osteopathic structural exam other than those noted in the History and Physical/Consult. Intake and Output 07/19/22 07/19/22 07/19/22 06:59 14:59 22:59 Other: Weight 49.895 kg HEENT: within normal limits Heart: regular rate and rhythm Lungs: clear to auscultation bilaterally Abdomen: soft, non-tender Pelvic: uterus small anteverted, non-tender with no adnexal masses or tenderness Extremites: neg. Yamilka's Assessment and Plan (1) Family planning Status: Acute Code(s): Z30.09 - ENCOUNTER FOR [facility] GENERAL CNSL AND ADVICE ON CONTRACEPTION SNOMED Code(s): 245870211 Plan: Proceed with laparoscopic bilateral tubal ligation via fulgaration. I have discussed the risks, benefits, and alternative therapies for the above- mentioned procedure and for both sedation/anesthesia as well as necessary blood products administration, if indicated, as they pertain to this patient. The patient has indicated her understanding and acceptance of the risks and procedures discussed.
--- NOTE | 2022-08-25 19:23 | P.HPOB ---
History of Present Illness H&P Date: 08/25/22 Chief Complaint: Family planning This is a 27 y.o. female, 4, para 3, who presents for laparoscopic bilateral tubal ligation for family planning. OB Hx: . History of 3 vaginal deliveries. 1 miscarriage. Utilization Review Nurse Hx: No history of STDs. 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 Review of Systems Constitutional: Denies chills, Denies fever Eyes: denies blurred vision, denies pain Ears, nose, mouth and throat: Denies headache, Denies sore throat Cardiovascular: Denies chest pain, Denies shortness of breath Respiratory: Denies cough Gastrointestinal: Denies abdominal pain, Denies diarrhea, Denies nausea, Denies vomiting Genitourinary: Denies dysuria, Denies hematuria Musculoskeletal: Denies myalgias Integumentary: Denies pruritus, Denies rash Neurological: Denies numbness, Denies weakness Psychiatric: Denies anxiety, Denies depression Past Medical History Past Medical History: Asthma Additional Past Medical History / Comment(s): history of heart murmur-BENIGN , MIGRAINE HEADACHE, 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 History of Any Multi-Drug Resistant Organisms: None Reported Past Surgical History: Hernia Repair Additional Past Surgical History / Comment(s): Reconstruction of right hand, aspiration of right ganglion cyst, tooth extraction x 2 Past Anesthesia/Blood Transfusion Reactions: No Reported Reaction Past Psychological History: No Psychological Hx Reported Smoking Status: Former smoker, Vaper Past Alcohol Use History: None Reported Past Drug Use History: None Reported - Past Family History Mother History Unknown: Yes Family Medical History: No Reported History Medications and Allergies Home Medications Medication Instructions Recorded Confirmed Type Vit No.180/Iron/Folic 1 each PO DAILY 12/21/18 08/23/22 History [ Plus Vitamin-Mineral] Aspirin/Acetaminophen/Caffeine 1 each PO Q6H PRN 07/15/22 08/23/22 History [Excedrin Migraine Caplet] Allergies Allergy/AdvReac Type Severity Reaction Status Date / Time latex Allergy Rash/Hives Verified 08/23/22 10:26 Penicillins Allergy Rash/Hives Verified 08/23/22 10:26 Exam Osteopathic Statement: *. No significant issues noted on an osteopathic structural exam other than those noted in the History and Physical/Consult. HEENT: within normal limits Heart: regular rate and rhythm Lungs: clear to auscultation bilaterally Abdomen: soft, non-tender Pelvic: uterus small anteverted, non-tender with no adnexal masses or tenderness Extremities: negative Yamilka's Assessment and Plan (1) Family planning Current Visit: No Status: Acute Code(s): Z30.09 - ENCOUNTER FOR [facility] GENERAL CNSL AND ADVICE ON CONTRACEPTION SNOMED Code(s): 879066062 Plan: Proceed with laparoscopic bilateral tubal ligation via fulgaration. I have discussed the risks, benefits, and alternative therapies for the above- mentioned procedure and for both sedation/anesthesia as well as necessary blood products administration, if indicated, as they pertain to this patient. The patient has indicated her understanding and acceptance of the risks and procedures discussed.
[~2022-08-26 08:47] MED LIST changes: +DEXAMETHASONE SOD PHOSPHATE 4 MG/ML 1 ML VIAL IV ONE; +HYDROmorphone 0.5 MG/0.5 ML SYRINGE IVP PRN; +ONDANSETRON 4 MG/2 ML VIAL IVP ONE; +Pre Op ABX Message 1 EACH MISC MISCELLANE ONE; -ROPIVACAINE 5MG/ML 20ML VIAL ONE; -SODIUM CHLORIDE 0.9% 100 ML BAG ONE; -fentaNYL (PF) 50 MCG/ML 5 ML AMP ONE
[2022-08-26 09:37] VITALS: RESP 16
[2022-08-26] MEDS: LACTATED RINGERS 1,000 ML IV SCH ×2 (09:38→10:06)
[2022-08-26] MEDS ORDERED: LIDOCAINE 4% LTA KIT (4 ML) TOPICAL ONE (10:02)
[2022-08-26] MEDS ORDERED: PHENYLEPHRINE-0.9% NACL SYG 1,000 MCG/10 ML SYRINGE ONE (10:02)
[2022-08-26] MEDS ORDERED: GLYCOPYRROLATE 0.2 MG/ML 2 ML VIAL ONE (10:02)
[2022-08-26] MEDS ORDERED: MIDAZOLAM 2 MG/2 ML VIAL ONE (10:02)
[2022-08-26] MEDS ORDERED: NEOSTIGMINE 1 MG/ML 10 ML VIAL ONE (10:02)
[2022-08-26] MEDS ORDERED: LIDOCAINE 2% INJ 20 MG/ML (2 ML VIAL) ONE (10:02)
[2022-08-26] MEDS ORDERED: ROCURONIUM 10 MG/ML (5 ML VIAL) IV ONE (10:02)
[2022-08-26] MEDS ORDERED: PROPOFOL 10 MG/ML 20 ML VIAL IV ONE (10:02)
[2022-08-26] MEDS ORDERED: fentaNYL (PF) 50 MCG/ML 2 ML AMP ONE (10:02)
[2022-08-26] MEDS ORDERED: KETOROLAC 15 MG/ML 1 ML VIAL ONE (10:02)
[2022-08-26] MEDS ORDERED: SUCCINYLCHOLINE CHLORIDE 200 MG/10 ML VIAL IV ONE (10:02)
[2022-08-26] MEDS ORDERED: BUPIVACAINE (PF) 0.25% 30 ML VIAL SQ ONE ×2 (10:27→10:50)
--- NOTE | 2022-08-26 10:56 | P.OP ---
Date of Procedure: 08/26/22 Preoperative Diagnosis: Family planning Postoperative Diagnosis: Same Procedure(s) Performed: Laparoscopic left tubal ligation via fulguration Anesthesia: FRANCISCO Surgeon: Isabella Hernadez Estimated Blood Loss (ml): 5 Pathology: none sent Condition: stable Disposition: same day Indications for Procedure: This is a 27 y.o. female, 4, para 3, who presents for laparoscopic bilateral tubal ligation for family planning. Operative Findings: Normal appearing uterus. Normal left tube and ovary. 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 Description of Procedure: The patient is taken to the operating room where she is placed in the dorsal lithotomy position. She is prepped and draped in the normal sterile fashion. Examination is performed under anesthesia. Uterus is found to be in a antever rufus position. No adnexal masses were palpated. Next a bivalve speculum was placed in the patient's vagina. An Allis clamp was used to grasp the anterior lip of the cervix. The uterus was sounded to 9.5 cm. The kroner uterine manipulator was then inserted through the cervix and the balloon was inflated. The Allis clamp is removed. Speculum was removed. Gloves are changed and attention is turned to the abdomen. A small stab incision was made with a scalpel in the infraumbilical fold. A towel clip was placed on either side of the umbilicus for retraction. A 5 mm disposable bladeless trocar was then inserted into the peritoneal cavity under direct visualization using low flow. Once inside, pneumoperitoneum was achieved with CO2 gas. The insert was removed and the camera was placed. Intraperitoneal placement was confirmed. No bleeding was noted. Next the patient was placed in Trendelenburg position. A small stab incision was made suprapubically and a 5 mm disposable bladeless trocar was inserted into the peritoneal cavity under direct visualization. Once inside pelvic contents were inspected. 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 Next a bipolar Kleppinger instrument was placed through the inferior trocar and the midportion of the left fallopian tube was brought away from other structures and completely fulgurated on approximate 2-3 cm segment of the tube. Excellent hemostasis was noted. Pictures were taken. Pneumoperitoneum was released after the inferior trocar was removed under direct visualization. The upper trocar was then removed. The skin incisions were then closed with 4-0 Vicryl suture in a subcuticular fashion. Incisions were then injected with quarter percent Marcaine. Approximately 6 mL were used. Next the kroner uterine manipulator was removed. Minimal bleeding was noted. All sponge and needle counts are correct. The patient is then taken to recovery room in stable condition.
[2022-08-26 11:10] VITALS: TEMP 97
[2022-08-26 12:04] VITALS: BP 113/77; PULSE 70
== END 2022-08-26 12:17 | disposition home or self-care (01) ==
LOC: OR 08:47
PROVIDERS: ATTEND Obstetrics & Gynecology
DX: Z30.2 Encounter for sterilization (principal); J45.909 Unspecified asthma, uncomplicated; Z87.891 Personal history of nicotine dependence; Z79.899 Other long term (current) drug therapy
CPT/HCPCS: 81025; 58670; J2250; J0330; J1100; J2710; J2405; J3010; J1885; J2370; J2704; J2001